=== PATIENT | female | born 1990 | race Caucasian/White ===

== ENCOUNTER 2017-03-23 06:20 | Emergency (ER) | payer MEDICAID ==
[2017-03-23 06:25] VITALS: RESP 16
[2017-03-23] MEDS ORDERED: ONDANSETRON 4 MG/2 ML VIAL IVP ONE (07:15)
[2017-03-23] MEDS ORDERED: fentaNYL 100 MCG/2 ML INJ IVP ONE (07:15)
[2017-03-23] MEDS ORDERED: NS 1,000 ML IV ONE (07:15)
--- NOTE | 2017-03-23 07:18 | EDPHY ---
HPI/HX/ROS/PE/MDM Narrative: CHIEF COMPLAINT: Abdominal cramping, N/V/D HISTORY OF PRESENT ILLNESS: The patient is a 26 y/o female complaining of abdominal cramping that woke her from sleep early this morning. Her medical history includes ovarian cysts and HPV with colposcopy requiring pap smears every 6 months. She currently has nonradiating RLQ pain she describes as "stabbing" in quality. She says, "I get so much pain that I can't keep anything down and I keep throwing up." She has continued to have dry heaving throughout the morning. She's had only mild alleviation of her pain with Midol. She gets similar pain associated with her menstrual period, but these symptoms do not occur every cycle. Her menstrual cycle began two days ago and they are usually irregular. She is not currently on control and denies recent unprotected sex. No history of abdominal surgeries. No fever, chills, chest pain, shortness of breath, palpitations, urinary complaints, abnormal vaginal discharge, headache, lightheadedness. REVIEW OF SYSTEMS: Aside from elements discussed in the HPI, a comprehensive 10-point review of systems was reviewed and is negative. PAST MEDICAL HISTORY: Ovarian cysts, HPV - colposcopy, paps every 6 months SOCIAL HISTORY: Lives in [place]. OBGYN: [facility] VITAL SIGNS: Reviewed by me GENERAL: Well-developed, well-nourished, resting comfortably in no respiratory distress. HEENT: Atraumatic. Eyes: No icterus, no injection. Mouth: moist mucous membranes. No erythema or lesions. Neck: supple with no adenopathy. LUNGS: Clear to auscultation bilaterally, no wheezes, rhonchi or rales. CARDIAC: Regular rate and rhythm, no rubs, murmurs or gallops. ABDOMEN: Soft, mild suprapubic and bilateral adnexal pain, no guarding or rebound, nondistended, bowel sounds normal. BACK: No CVA tenderness. EXTREMITIES: No trauma. No edema. Range of motion is normal throughout. NEURO: Alert and oriented, grossly nonfocal. SKIN: Warm and dry, no rash. PSYCHIATRIC: Normal mentation, no agitation. Portions of this note were transcribed by a medical terminologist. I personally performed a history, physical exam, medical decision making, and confirmed accuracy of information the transcribed note. ED Course: This is a 26 y/o female with history of ovarian cysts and high risk HPV who presents with a few-hour history of acute onset abdominal cramping and N/V/D that began 2 days into her menstrual cycle. It sounds like these symptoms are not uncommon for her during her menstrual cycle, but this morning she has been unable to keep down any food or water due to pain and vomiting. She has mild suprapubic and bilateral adnexal tenderness on exam. She is afebrile. Plan for IV, labs, UA, symptom management, and pelvic US to evaluate for ovarian cyst. 1L IV NS, 4mg IV Zofran, 75mcg IV Fentanyl. 30mg Toradol ordered if patient's creatinine is normal. WBC elevated at 16.4. UA shows blood related to menstrual cycle. Pelvic US is normal per radiology. Reassessed patient and discussed findings. She is feeling improved after medication and fluids here. Abdomen is benign on reexamination. She will be discharged home with scripts for Indomethacin, Percocet, and Zofran and recommendation to follow up with her OBGYN in the next few days. Return precautions discussed. The patient is comfortable with plan for discharge. MDM: The differential diagnosis for the patient's abdominal pain was considered including but not limited to ovarian cyst, pelvic inflammatory disease, ovarian torsion, urinary tract infection, related complications, and appendicitis. - Data Points Imaging: Discussed imaging studies w/ er rn Radiologist Laboratory Results: Laboratory Results 03/23/17 07:25 03/23/17 07:25 Medications Given: Discontinued Medications Fentanyl (Sublimaze) 75 mcg IVP EDNOW ONE Stop: 03/23/17 07:16 Last Admin: 03/23/17 07:30 Dose: 75 mcg Sodium Chloride (Ns) 1,000 mls @ 0 mls/hr IV ONCE ONE; Wide Open PRN Reason: Protocol Stop: 03/23/17 07:16 Last Admin: 03/23/17 07:31 Dose: 1,000 mls Ketorolac Tromethamine (Toradol) 30 mg IVP EDNOW ONE Stop: 03/23/17 08:31 Last Admin: 03/23/17 08:44 Dose: 30 mg Ondansetron HCl (Zofran) 4 mg IVP EDNOW ONE Stop: 03/23/17 07:16 Last Admin: 03/23/17 07:31 Dose: 4 mg General Initial Vital Signs: Initial Vital Signs Temperature (C) 36.4 C 03/23/17 06:23 Heart Rate 71 03/23/17 06:23 Respiratory Rate 16 03/23/17 06:23 Blood Pressure 107/51 L 03/23/17 06:23 O2 Sat (%) 99 03/23/17 06:23 O2 Delivery Mode Room Air Allergies/Adverse Reactions: Penicillins Allergy (Verified 03/23/17 06:22) Home Medications: Medication Instructions Recorded Hydrocodone/APAP 5/325 [[place] 1 tab PO Q6H PRN #14 tab 03/23/17 5/325 (RX)] Indomethacin [Indocin 25 mg (*)] 25 mg PO TID #30 cap 03/23/17 Ondansetron Odt [Zofran Odt 4 mg 4 mg PO Q6 PRN #8 tab 03/23/17 (RX)] Departure - Departure Disposition: Home, Routine, Self-Care Clinical Impression: Nausea vomiting and diarrhea, Menstrual cramps Condition: Good Instructions: Hydrocodone/Acetaminophen (By mouth), Indomethacin (By mouth), Acute Nausea and Vomiting (ED), Abdominal Pain (ED) Additional Instructions: 1. Take 25mg indomethacin three times daily with food regularly for the next several days. You can also try applying a heating pad intermittently on your abdomen. 2. Use Percocet as prescribed when needed for severe pain. This is a narcotic and can make you drowsy. Do not use it while driving. 3. Take Zofran as prescribed when needed for nausea or vomiting. 4. Follow up with an OBGYN in the next 2-3 days. You've been referred to the OBGYN on-call. 5. Return to the ED for severe pain, inability to keep fluid down for an extended period of time, lightheadedness, fainting, or other worsening of condition. Referrals: CHUCKY KEANE [Other] - As per Instructions Coby Aleman MD [Medical Doctor] - As per Instructions Prescriptions: Hydrocodone/APAP 5/325 [[place] 5/325 (RX)] 1 tab PO Q6H PRN #14 tab PRN Reason: Pain Indomethacin [Indocin 25 mg (*)] 25 mg PO TID #30 cap Ondansetron Odt [Zofran Odt 4 mg (RX)] 4 mg PO Q6 PRN #8 tab PRN Reason: Nausea Report Scribed for: Ambar Morales Report Scribed by: Mary Heller Date of Report: 03/23/17 Time of Report: 07:19
[2017-03-23 07:33] LABS: PLATELET COUNT 312 10^3/uL (150-400)
[2017-03-23] MEDS ORDERED: KETOROLAC 30 MG/1 ML SDV IVP ONE (08:30)
[2017-03-23 09:00] VITALS: BP 99/69; PULSE 62; TEMP 98.8; O2SAT 98
== END 2017-03-23 08:59 | disposition home or self-care (01) ==
DX: N94.6 Dysmenorrhea, unspecified (principal); E86.9 Volume depletion, unspecified
CPT/HCPCS: 96374; J1885; J2405; J3010